=== PATIENT | male | born 1985 | race Caucasian/White ===

== ENCOUNTER 2021-12-26 10:58 | Outpatient (CLI) | payer BC ==
[2021-12-26 17:39] LABS: BASOPHILS # (AUTO) 0.1 10^3/uL (0.0-0.1); BASOPHILS % (AUTO) 1.7 %; EOSINOPHILS # (AUTO) 0.2 10^3/uL (0.0-0.7); EOSINOPHILS % (AUTO) 2.8 %; HCT - HEMATOCRIT 46.8 % (42.0-52.0); LYMPHOCYTES # (AUTO) 1.5 10^3/uL (1.5-3.5); LYMPHOCYTES % (AUTO) 27.8 %; MEAN CORPUSCULAR HEMOGLOBIN 28.2 pg (27.0-31.0); MEAN CORPUSCULAR HGB CONC 32.1 g/dL (32.0-36.0); MEAN CORPUSCULAR VOLUME 88.1 fL (80.0-94.0); MEAN PLATELET VOLUME 11.2 fL (7.4-11.4); MONOCYTES # (AUTO) 0.5 10^3/uL (0.0-1.0); MONOCYTES % (AUTO) 9.4 %; NEUTROPHILS # (AUTO) 3.2 10^3/uL (1.5-6.6); NEUTROPHILS % (AUTO) 58.1 %; PLT - PLATELET COUNT 282 10^3/uL (130-450); RED BLOOD COUNT 5.31 10^6/uL (4.70-6.10); RED CELL DISTRIBUTION WIDTH 12.3 % (12.0-15.0); WHITE BLOOD COUNT 5.4 x10^3/uL (4.8-10.8)
[2021-12-26 18:31] LABS: ALBUMIN 4.9 g/dL (3.2-5.5); ALBUMIN/GLOBULIN RATIO 1.8 (1.0-2.2); ALKALINE PHOSPHATASE 59 IU/L (42-121); ALT ALANINE AMINOTRANSFERASE 23 IU/L (10-60); AST ASPARTATE AMINOTRANSFERASE 22 IU/L (10-42); BILIRUBIN,TOTAL 1.6 mg/dL (0.2-1.0); BUN - BLOOD UREA NITROGEN 15 mg/dL (6-20); CALCIUM 9.7 mg/dL (8.5-10.3); CARBON DIOXIDE - CO2 31 mmol/L (21-32); CHLORIDE 102 mmol/L (101-111); CHOL/HDL RATIO 3.1 (<5.0); CHOLESTEROL 181 mg/dL; GFR - MDRD 84 (>89); GLUCOSE 88 mg/dL (70-100); HDL CHOLESTEROL 58 mg/dL; LDL CHOLESTEROL,CALCULATED 114 mg/dL; POTASSIUM 4.6 mmol/L (3.5-5.0); SODIUM 139 mmol/L (135-145); TOTAL PROTEIN 7.6 g/dL (6.7-8.2); TRIGLYCERIDES 43 mg/dL; VLDL CHOLESTEROL 9 mg/dL
[2021-12-26 19:13] LABS: THYROID STIMULATING HORMONE 1.13 uIU/mL (0.34-5.60)
[2021-12-26 19:24] LABS: FOLATE 12.42 ng/mL (5.90 - >24.8)
== END 2021-12-26 10:59 | disposition home or self-care (01) ==
LOC: LAB.N 10:58
PROVIDERS: ATTEND Nurse Practitioner Family
DX: K92.1 Melena (principal); R63.6 Underweight; R10.84 Generalized abdominal pain; F41.8 Other specified anxiety disorders; F48.8 Other specified nonpsychotic mental disorders
CPT/HCPCS: 36415; 80053; 80061; 82607; 82746; 83516; 83721; 84443; 85025; 86364

== ENCOUNTER 2022-01-31 09:27 | Day surgery (SDC) | payer BC ==
[2022-01-31] MEDS ORDERED: LACTATED RINGERS 1,000 ML IV ONE ×2 (09:56→12:15)
--- NOTE | 2022-01-31 11:09 | ANESTHESIA ---
Pre-Anesthesia VS, & Labs - Diagnosis blood in stool - Procedure EGD, colonoscopy Vital Signs: Temp Pulse Resp BP Pulse Ox O2 Flow Rate 36.6 C 86 16 132/97 H 97 01/31/22 09:47 01/31/22 09:47 01/31/22 09:47 01/31/22 09:47 01/31/22 09:47 Height: 6 ft 1 in Weight (kg): 64.7 kg Body Mass Index: 18.8 BMI Classification: Normal - NPO Other (5am finished prep) Home Medications and Allergies Home Medications: Ambulatory Orders buPROPion [Wellbutrin Xl] 150 mg PO DAILY 01/30/22 buPROPion [Wellbutrin Xl] 150 mg PO DAILY 01/30/22 Allergies/Adverse Reactions: Allergies Allergy/AdvReac Type Severity Reaction Status Date / Time cefaclor [From [facility]] Allergy Anaphylaxis Verified 01/30/22 13:08 Anes History & Medical History - Anesthetic History Anesthesia Complications: reports: No previous complications - Medical History Cardiovascular: reports: None Pulmonary: reports: None Gastrointestinal: reports: GERD Urinary: reports: Kidney stones Smoking Status: Former smoker (vapes now) Psychosocial: reports: Depression History of Cancer?: No - Surgical History Urologic: reports: Kidney stents Exam Dental: WNL Mouth Opening: Greater than 4 Fingerbreadths Neck Mobility: Normal Mallampati classification: I Thyromental Distance: greater than 6 cm Respiratory: Lungs clear Cardiovascular: Regular rate Plan Anesthesia Type: Total IV Consent for Procedure(s) Verified and Reviewed: Yes Code Status: Attempt Resuscitation ASA classification: 2-Mild systemic disease Is this case an emergency?: No
[2022-01-31] MEDS ORDERED: PROPOFOL 500 MG/50 ML 500 MG/50 ML VIAL ONE (11:32)
[2022-01-31] MEDS ORDERED: LIDOCAINE-PF 2% 10 ML AMP SUBQ ONE (11:32)
[2022-01-31] MEDS ORDERED: SIMETHICONE 40 MG/0.6 ML 30 ML BOTTLE PO ONE (11:52)
--- NOTE | 2022-01-31 12:24 | ANESTHESIA POST OP EVALUATION ---
Anesthesia Post Eval - Post Anesthesia Eval Vitals: Last Vital Signs Temp 36.6 C 01/31/22 12:15 Pulse 55 L 01/31/22 12:15 Resp 18 01/31/22 12:15 BP 108/73 01/31/22 12:15 Pulse Ox 100 01/31/22 12:15 O2 Flow Rate CV Function Including HR & BP: Stable Pain Control: Satisfactory Nausea & Vomiting: Negative Mental Status: Baseline Respiratory Status: Airway Patent Hydration Status: Satisfactory Anesthesia Complications: None
[2022-01-31 12:50] VITALS: BP 106/68
== END 2022-01-31 09:28 | disposition home or self-care (01) ==
LOC: SDS 09:27
PROVIDERS: ATTEND Surgery
PROC: 0DB78ZX Excision of Stomach, Pylorus, Via Natural or Artificial Opening Endoscopic, Diagnostic (ICD-10-PCS; principal; 2022-01-31 10:45)
DX: K29.71 Gastritis, unspecified, with bleeding (principal); K21.9 Gastro-esophageal reflux disease without esophagitis; Z83.79 Family history of other diseases of the digestive system; Z87.891 Personal history of nicotine dependence; Z91.89 Other specified personal risk factors, not elsewhere classified
CPT/HCPCS: 43239; 45378; A9270; J7120